=== PATIENT | female | born 1960 | race Caucasian/White ===

== ENCOUNTER 2022-08-21 16:29 | Emergency (ER) | payer OTHER, MEDICAID ==
[2022-08-21] MEDS ORDERED: fentaNYL 100 MCG/2 ML SDV IVPUSH ONE ×2 (16:34→17:10)
[2022-08-21] MEDS ORDERED: Sodium Chloride 0.9% 10 ML Syringe FLUSH PRN (16:34)
[2022-08-21] MEDS ORDERED: Ondansetron 4 MG/2 ML SDV IVPUSH ONE ×2 (16:36→19:07)
[2022-08-21 16:40] LABS: BASOPHILS ABSOLUTE AUTO 0.07 K/uL (0.00-0.10); BASOPHILS PERCENT AUTO 0.7 % (0.1-1.3); EOSINOPHILS ABSOLUTE AUTO 0.11 K/uL (0.00-0.40); EOSINOPHILS PERCENT AUTO 1.1 % (0.0-5.4); HEMATOCRIT 45.9 % (34.3-46.0); HEMOGLOBIN 15.6 g/dL (11.2-15.5); IMMATURE GRAN ABSOLUTE AUTO 0.03 K/uL (0.00-0.23); IMMATURE GRAN PERCENT AUTO 0.3 % (0.0-0.7); LYMPHOCYTES ABSOLUTE AUTO 3.42 K/uL (0.8-3.3); LYMPHOCYTES PERCENT AUTO 33.1 % (11.4-47.7); MEAN CORPUSCULAR HEMOGLOBIN 30.3 pg (31.6-35.5); MEAN CORPUSCULAR VOLUME 89.1 fL (81.4-99.0); MONOCYTES ABSOLUTE AUTO 0.75 K/uL (0.20-0.90); MONOCYTES PERCENT AUTO 7.3 % (3.3-12.6); NEUTROPHILS ABSOLUTE AUTO 5.95 K/uL (1.0-7.6); NEUTROPHILS PERCENT AUTO 57.5 % (40.0-78.1); PLATELET COUNT,PLT 168 K/uL (130-375); RED BLOOD CELL COUNT 5.15 M/uL (3.77-5.24); WHITE BLOOD CELL COUNT,WBC 10.3 K/uL (3.2-11.0)
[2022-08-21] MEDS ORDERED: Sodium Chloride 0.9% 10 ML Syringe FLUSH ONE (16:41)
[2022-08-21] MEDS ORDERED: Sodium Chloride 0.9% 50 ML IV SCH (16:45)
[2022-08-21] MEDS ORDERED: Iopamidol 612 MG/ML 100 ML Bottle IV SCH (16:45)
[2022-08-21 17:00] LABS: PROTHROMBIN TIME 10.4 sec (9.2-10.6)
[2022-08-21 17:01] LABS: A/G RATIO 1.3 (1.2-2.2); ALANINE AMINOTRANSFERASE,ALT 47 U/L (12-78); ALBUMIN 4.2 g/dL (3.4-5.0); ALKALINE PHOSPHATASE 94 U/L (46-116); ANION GAP 18.3 mmol/L (5.0-14.0); ASPARTATE AMNIOTRANSFERASE,AST 34 U/L (15-37); BILIRUBIN TOTAL 0.7 mg/dL (0.2-1.0); BLOOD UREA NITROGEN,BUN 23 mg/dL (7-18); CALCIUM 10.1 mg/dL (8.5-10.1); CARBON DIOXIDE,CO2 23 mmol/L (21-32); CHLORIDE,CL 101 mmol/L (100-108); CREATININE 1.1 mg/dL (0.6-1.0); ESTIMATED GFR 56 mL/min (>60); GLUCOSE RANDOM 125 mg/dL (74-106); POTASSIUM,K 3.3 mmol/L (3.6-5.2); PROTEIN TOTAL,TP 7.5 g/dL (6.4-8.2); SODIUM,NA 139 mmol/L (140-148)
[2022-08-21] MEDS ORDERED: Diphtheria,Pertussis(Acell),Tetanus Vaccine 0.5 ML Syringe IM ONE (17:36)
[2022-08-21 17:52] LABS: APPEARANCE,URINE CLEAR (CLEAR); BILIRUBIN,URINE NEGATIVE (NEGATIVE); COLOR,URINE YELLOW (YELLOW); GLUCOSE,URINE NEGATIVE (NEGATIVE); KETONES,URINE TRACE mg/dL (NEGATIVE); LEUKOCYTE ESTERASE,URINE SMALL (NEGATIVE); NITRITE,URINE NEGATIVE (NEGATIVE); OCCULT BLOOD,URINE SMALL (NEGATIVE); PH,URINE 6.5 (5.0-8.0); PROTEIN,URINE NEGATIVE (NEGATIVE); UROBILINOGEN,URINE 0.2 EU/dL (0.2-1.0)
[2022-08-21 17:57] LABS: RBC,URINE 0-5 (0-5)
[2022-08-21 17:58] LABS: AMORPHOUS SEDIMENT,URINE NOT SEEN; BACTERIA,URINE MODERATE; EPITHELIAL CELLS,URINE FEW; MUCUS,URINE RARE
[2022-08-21] MEDS ORDERED: HYDROmorphone 0.5 MG/0.5 ML Syringe IVPUSH ONE ×2 (18:00)
[2022-08-21] MEDS ORDERED: HYDROmorphone 1 MG/ML Syringe IVPUSH STA (18:56)
[2022-08-21] MEDS ORDERED: carBAMazepine 100 MG Tab ER PO ONE (19:08)
[2022-08-21] MEDS ORDERED: Ondansetron 4 MG/2 ML SDV IVPUSH STA (20:30)
== END 2022-08-21 23:05 | disposition home or self-care (01) ==
LOC: JP.ED 16:29
DX: S30.0XXA Contusion of lower back and pelvis, initial encounter (principal); S50.311A Abrasion of right elbow, initial encounter; M25.551 Pain in right hip; Z88.0 Allergy status to penicillin; Z79.899 Other long term (current) drug therapy; V86.95XA Unspecified occupant of 3- or 4- wheeled all-terrain vehicle (ATV) injured in nontraffic accident, initial encounter; Y92.410 Unspecified street and highway as the place of occurrence of the external cause
CPT/HCPCS: 36415; 70450; 71260; 73080; 73552; 74177; 80053; 81001; 85025; 85610; 85730; 90471; 90715; 96374; 96375; 96376; 99291; A9270; G0390; J1170; J2405; J3010; J3490; Q9967